=== PATIENT | male | born 1995 | race Two or more races ===

== ENCOUNTER 2024-09-07 12:30 | Inpatient (IN) | payer MEDICAID, SELFPAY ==
[2024-09-07] VITALS (22 sets, daily range): BP systolic 105–195; BP diastolic 79–120; PULSE 111–128; RESP 18–32; TEMP 37.2–38.2; O2SAT 94–98; BMI 32.5
--- NOTE | 2024-09-07 12:50 | XR_ITS ---
Examination: PA lateral chest 2 views TECHNIQUE: Upright PA lateral chest 2 views Exam date and time: September 07, 2024 1306 hours INDICATIONS: Coughing fever shortness of breath beginning 3 days ago. FINDINGS: Prominent pneumonia right upper lobe Ventricular peritoneal shunt tube Reduced inspiratory effort IMPRESSION: Prominent pneumonia right upper lobe
--- NOTE | 2024-09-07 12:50 | PD.EDRME ---
Rapid Medical Screening Exam [facility] Arrival date/time: 09/07/24 12:30 28-year-old male ESRD on dialysis presents emergency department today with complaints of generalized weakness, diarrhea, black stools and fever Chief Complaint: GI Bleed Vital signs: Vital Signs Temperature 99.8 F 09/07/24 12:44 Pulse Rate 126 H 09/07/24 12:44 Respiratory Rate 19 09/07/24 12:44 Blood Pressure 166/87 H 09/07/24 12:44 Pulse Oximetry (%) 95 09/07/24 12:44 Oxygen Delivery Method Room Air 09/07/24 12:44
[2024-09-07 13:16] LABS: Lactate (Lactic Acid) 1.5 mMol/L (0.4-2.0)
[2024-09-07 13:24] LABS: Basophils # (Auto) 0.1 Thou/mm3 (0.0-0.2); Basophils % (Auto) 0 % (0-2.5); Eosinophils % (Auto) 0 % (0-10); Hematocrit 34.2 % (41.0-53.0); Hemoglobin 11.4 g/dL (13.5-16.0); Immature Granulocytes % (Auto) 2 % (0-0); Immature Granulocytes Auto 0.38 Thou/mm3 (0.00-0.00); Lymphocytes # (Auto) 1.2 Thou/mm3 (1.0-4.8); Lymphocytes % (Auto) 5 % (10-50); Mean Corpuscular HGB Conc 33.3 g/dl (31.0-37.0); Mean Corpuscular Hemoglobin 32.4 pg (25.0-35.0); Mean Corpuscular Volume 97 fL (80-100); Monocytes # (Auto) 1.6 Thou/mm3 (0.0-0.8); Monocytes % (Auto) 7 % (0-12); Neutrophils # (Auto) 20.8 Thou/mm3 (1.8-7.7); Neutrophils % (Auto) 87 % (37-80); Nucleated Red Blood Cell % 0 /100 WBC (0); Platelet Count 165 Thou/mm3 (140-440); RDW Standard Deviation 57.3 fL (35.1-43.9); Red Blood Count 3.52 Miln/mm3 (4.50-5.90); White Blood Count 24.1 Thou/mm3 (3.8-10.6)
[2024-09-07 13:39] LABS: INR 1.3 (0.9-1.3); Partial Thromboplastin Time 31.6 Seconds (22.0-36.0); Prothrombin Time 13.7 Seconds (9.0-12.2)
[2024-09-07 14:01] LABS: Alanine Aminotransferase < 7 U/L (10-49); Albumin, Serum 4.3 gm/dL (3.5-5.0); Albumin/Globulin Ratio 1.3 (1.2-2.2); Alkaline Phosphatase 66 U/L (46-116); Anion Gap 17 (7-16); Aspartate Amino Transferase 11 U/L (0-34); BUN/Creatinine Ratio 5 Ratio (12-20); Bilirubin,Total 0.3 mg/dL (0.3-1.2); Blood Urea Nitrogen 75 mg/dL (9-23); Calcium 10.6 mg/dL (8.3-10.6); Calcium (Corrected) 10.6 mg/dL (8.5-10.1); Chloride 93 mMol/L (98-107); Globulin 3.4 gm/dL (2.3-3.5); Glucose 97 mg/dL (74-106); Lipase 37 U/L (12-53); Osmolality,Calculated 286 (275-295); Potassium 5.9 mMol/L (3.4-5.1); Sodium 132 mMol/L (136-145); Total Protein 7.7 gm/dL (5.7-8.2); eGFR 4 See Note
[2024-09-07 14:04] LABS: Creatinine (Component) 14.3 mg/dL (0.6-1.3)
--- NOTE | 2024-09-07 15:50 | PC.NURSE ---
No answer when called for room placement.
[2024-09-07 16:15] LABS: Creatine Kinase 26 U/L (34-171)
--- NOTE | 2024-09-07 16:16 | PD.EDADULT ---
ED General RME/HPI General Chief complaint: GI Bleed Stated complaint: BLACK STOOL, FEVER, BODYACHES, DIARRHEA Time Seen by Provider: 09/07/24 15:36 Arrival date/time: 09/07/24 12:30 CC: Cough generalized weakness with black stools HPI ongoing for the past several days. The patient admits that he drank Pepto-Bismol and since then his stools have been black however the patient states she has had a nonproductive cough for the past 2 to 3 days, and missed dialysis today. The patient has been on dialysis for the past 8 years secondary to spina bifida. Patient is awake alert oriented Dr. Elias is the patient's manager cable in [place]. Patient receives dialysis in [place]. RME / HPI RME / HPI narrative: 09/07/24 12:30 28-year-old male ESRD on dialysis presents emergency department today with complaints of generalized weakness, diarrhea, black stools and fever Related Data Allergies Allergy/AdvReac Type Severity Reaction Status Date / Time No Known Allergies Allergy Verified 09/07/24 12:34 Review of Systems Review of Systems Narrative Review of Systems: GEN: No fever, no chills, no weight loss EYES: No discharge, no visual changes, no pain HEENT: No ear pain, no congestion, no sore throat PULM: No shortness of breath, no cough, no congestion CV: No chest pain, no dyspnea on exertion, no palpitations GI: No nausea, no vomiting, no diarrhea, no pain, no constipation : No frequency, no urgency, no dysuria MUSC/SKEL: No joint pain, no back pain SKIN: No rash PSYCH: No hallucinations, no depression HEME/LYMPH: No easy bleeding or bruising tendencies NEURO: + weakness, no headache Past Medical History Social History SMOKING STATUS: Never smoker ED Exam Narrative Physical exam: [General: Not in any acute distress Head normocephalic HEENT: Within acceptable limits Neck is supple nontender Chest equal chest rise nontender to palpation Respiratory: Coarse crackles right size CV: Rate rhythm is regular, tachycardic, no murmurs rubs or clicks Abdomen is distended secondary to body habitus soft nontender no masses positive bowel sounds all 4 quadrants Back: No CVA tenderness no spinous process tenderness from cervical spine thoracic and lumbar spine Skin: Left upper arm shunt. Skin is intact no petechiae rash induration ulceration or crepitus Extremities: Moving all extremity against resistance cap refill less than 2 seconds neurosensory intact Neuro: Awake alert oriented x3 Glascow coma 15 no focal deficits] Course Quality Measures none Orders Category Date Time Status Admit to Inpatient Status Routine Admission 09/07/24 16:49 Active Bedside COVID-19 Antigen Test NOW Care 09/07/24 12:50 Active Bedside Influenza A&B Antigen Test NOW Care 09/07/24 12:50 Completed EKG (ED ONLY) *Do not use* NOW Care 09/07/24 16:29 Active Insert IV NOW Care 09/07/24 16:19 Active Miscellaneous Nursing Order NOW Care 09/07/24 16:49 Active EKG (ED Only) Stat Exams 09/07/24 16:29 Ordered XR chest 2V Stat Exams 09/07/24 12:50 Completed Blood Culture (Lab) Stat Lab 09/07/24 12:58 Received CBC Stat Lab 09/07/24 12:58 Completed Comprehensive Metabolic Panel Stat Lab 09/07/24 12:58 Completed Creatine Kinase Stat Lab 09/07/24 12:58 Completed Lactate (Lactic Acid) Stat Lab 09/07/24 12:58 Completed Lipase Stat Lab 09/07/24 12:58 Completed PT [Prothrombin Time with INR] Stat Lab 09/07/24 12:58 Completed PTT [Partial Thromboplastin Time] Stat Lab 09/07/24 12:58 Completed Procalcitonin Stat Lab 09/07/24 12:58 Completed ALBUTEROL RT 0.5ml [Proventil Rt 0.5ml] Med 09/07/24 15:38 Discontinued 2.5 mg INH X1 ONE Calcium Gluconate 10% Inj Med 09/07/24 15:38 Discontinued 1 gm IV X1 ONE Dextrose 50% Syr [D50w Syringe Abboject] Med 09/07/24 15:38 Discontinued 50 ml IV X1 ONE Insulin Regular Med 09/07/24 15:38 Discontinued 5 unit IV X1 ONE Sodium Chloride Rt Amrita 0.9% [NS Rt Amrita 0.9%] Med 09/07/24 15:38 Active 3 ml INH PRN PRN cefTRIAXone/D5w 1gm IV premix [Rocephin/D5w 1gm IV Med 09/07/24 15:39 Discontinued premix] 50 ml IV X1 Vital Signs Vital signs: Vital Signs Temperature 99.8 F 09/07/24 12:44 Pulse Rate 126 H 09/07/24 12:44 Respiratory Rate 19 09/07/24 12:44 Blood Pressure 166/87 H 09/07/24 12:44 Pulse Oximetry (%) 95 09/07/24 12:44 Oxygen Delivery Method Room Air 09/07/24 12:44 [facility] Patient data External records reviewed:: [facility] previous records Clinical information provided by:: patient Social determinants that could affect healthcare access:: none Patient has the following chronic illnesses:: ESRD dialysis spina bifida yeah How is presenting disease/condition affected by chronic disease/condition?: exacerbated by Evaluation data The following diagnostics were reviewed and interpreted by me:: lab results and radiology exam(s) Lab and/or radiology exams considered but not ordered:: CBC shows of 24,100 white count H&H of 11.4 and 34.2 respectively platelets at 165 CMP shows sodium 132 potassium of 5.9 chloride 93 CO2 of 22 BUN of 75 creatinine of 14.3 with a glucose of 97 Coags PT at 13.7 gap of 17 CK 26 Chest x-ray was a right prominent pneumonia EKG performed at 1650 shows a ventricular rate of 121 SC interval 135 QRS of 91 QTc of 345 sinus tachycardia. Interpretation Summary: Hyperkalemia secondary to missed dialysis ESRD with a prominent pneumonia. This patient needs to be admitted and managed. Patient has been given medications to bring his potassium down. Patient's case discussed with Dr. Yadav resident for Dr. Kasper attending who agrees to accept the patient for admission Medications Medications considered but not ordered:: None Medication administrations:: Medication Administration History Sodium Chloride (Sodium Chloride Rt Amrita 0.9% 3 Ml Nebu) 3 ml INH PRN PRN PRN Reason: SOLN Stop: 10/07/24 15:37 Discontinued Medications Albuterol (Albuterol Rt 2.5 Mg/0.5 Ml Nebu) 2.5 mg INH X1 ONE Stop: 09/07/24 15:39 Calcium Gluconate (Calcium Gluconate 10% Inj 1 Gm/10 Ml Vial) 1 gm IV X1 ONE Stop: 09/07/24 15:39 Last Admin: 09/07/24 16:32 Dose: 1 gm Documented By: SILVERIO Dextrose (Dextrose 50%-Water Inj 50 Ml Syringe) 50 ml IV X1 ONE Stop: 09/07/24 15:39 Last Admin: 09/07/24 16:36 Dose: 50 ml Documented By: SILVERIO Ceftriaxone Sodium/Dextrose (Rocephin/D5w 1gm Iv Premix) 50 mls @ 100 mls/hr IV X1 ONE Stop: 09/07/24 16:08 Last Admin: 09/07/24 16:44 Dose: 100 mls/hr Documented By: SILVERIO Insulin Human Regular (Insulin Hum Regular 1 Unit/0.01 Ml (Per Unit)) 5 unit IV X1 ONE Stop: 09/07/24 15:39 Last Admin: 09/07/24 16:34 Dose: 5 unit Documented By: SILVERIO Co-signed By: MARJORIE None Consultations Consultation(s) initiated? (list below): No Diagnosis Differential Diagnosis ED Complaint MDM: ESRD hyper calcium Nancy pneumonia sepsis Most likely diagnosis given after review of the tests above:: Hyperkalemia pneumonia ESRD Admission Indicated Admission indicated?: indicated Explain why admission is indicated or not indicated:: Requires further medical management Admission Request Was there a request for admission?: No Disposition Plan Disposition Plan: Admit Medical Decision Making Differential Diagnosis Differential Diagnosis: ESRD hyper calcium Nancy pneumonia sepsis Lab Data 09/07/24 12:58 09/07/24 12:58 Labs: Lab Results 09/07/24 Range/Units 12:58 WBC 24.1 H (3.8-10.6) Thou/mm3 RBC 3.52 L (4.50-5.90) Miln/mm3 Hgb 11.4 L (13.5-16.0) g/dL Hct 34.2 L (41.0-53.0) % MCV 97 (80-100) fL MCH 32.4 (25.0-35.0) pg MCHC 33.3 (31.0-37.0) g/dl RDW Std Deviation 57.3 H (35.1-43.9) fL Plt Count 165 (140-440) Thou/mm3 Neut % (Auto) 87 H (37-80) % Lymph % (Auto) 5 L (10-50) % Bath % (Auto) 7 (0-12) % Eos % (Auto) 0 (0-10) % Baso % (Auto) 0 (0-2.5) % Neut # (Auto) 20.8 H (1.8-7.7) Thou/mm3 Lymph # (Auto) 1.2 (1.0-4.8) Thou/mm3 Bath # (Auto) 1.6 H (0.0-0.8) Thou/mm3 Eos # (Auto) 0.0 (0.0-0.5) Thou/mm3 Baso # (Auto) 0.1 (0.0-0.2) Thou/mm3 Immature Gran # (Auto) 0.38 H (0.00-0.00) Thou/mm3 Absolute Nucleated RBC 0.00 (0.00-0.00) Thou/mm3 Immature Gran % 2 H (0-0) % Nucleated RBC % 0 (0) /100 WBC PT 13.7 H (9.0-12.2) Seconds INR 1.3 (0.9-1.3) APTT 31.6 (22.0-36.0) Seconds Sodium 132 L (136-145) mMol/L Potassium 5.9 H (3.4-5.1) mMol/L Chloride 93 L (98-107) mMol/L Carbon Dioxide 22.0 (20.0-31.0) mMol/L Anion Gap 17 H (7-16) BUN 75 H (9-23) mg/dL Creatinine 14.3 H* (0.6-1.3) mg/dL Estim Creat Clear Calc 8.0 L (>60) mL/min eGFR 4 L* (60 - ) See Note BUN/Creatinine Ratio 5 L (12-20) Ratio Glucose 97 (74-106) mg/dL Calculated Osmolality 286 (275-295) Lactic Acid 1.5 (0.4-2.0) mMol/L Calcium 10.6 (8.3-10.6) mg/dL Corrected Calcium 10.6 H (8.5-10.1) mg/dL Total Bilirubin 0.3 (0.3-1.2) mg/dL AST 11 (0-34) U/L ALT < 7 L (10-49) U/L Alkaline Phosphatase 66 (46-116) U/L Total Creatine Kinase 26 L (34-171) U/L Total Protein 7.7 (5.7-8.2) gm/dL Albumin 4.3 (3.5-5.0) gm/dL Globulin 3.4 (2.3-3.5) gm/dL Albumin/Globulin Ratio 1.3 (1.2-2.2) Lipase 37 (12-53) U/L Procalcitonin 55.20 H (0.0-0.49) ng/ml Discharge Plan Plan Patient Disposition: Other Care w/in Hosp ([facility]) Patient condition on transfer: Stable Problem List Clinical Impression: Pneumonia, Hyperkalemia, End-stage renal disease (ESRD) Patient/Caregiver Discharge Instructions Print Language: Persian Stand Alone Forms: María Award Info., Patient Portal Info Letter PA/FORMING PROCESS LINE WORKER Supervising Physician PA/FORMING PROCESS LINE WORKER Supervising Physician: Travis Hampton ENP
[2024-09-07] MEDS: CALCIUM GLUCONATE 10% INJ 1 GM/10 ML VIAL IV (16:32)
[2024-09-07] MEDS: INSULIN HUM REGULAR 1 UNIT/0.01 ML (PER UNIT) 5 UNIT IV (16:34)
[2024-09-07] MEDS: DEXTROSE 50%-WATER INJ 50 ML SYRINGE IV (16:36)
[2024-09-07] MEDS: cefTRIAXone/D5w 1gm IV premix 50 ML IV (16:44)
[2024-09-07] MEDS: SODIUM CHLORIDE RT SOL 0.9% 3 ML NEBU INH (16:59)
[2024-09-07] MEDS: ALBUTEROL RT 2.5 MG/0.5 ML NEBU INH (16:59)
--- NOTE | 2024-09-07 17:04 | PD.RESHP ---
Documentation for date of: 09/07/24 [facility] History of Present Illness Chief complaint: Fever, chills, body aches History of present illness: 28-year-old male with past medical history of hypertension, ESRD [M,W,F] (anuric) dry weight 98 kg presented to the ED due to fevers, chills, body aches. Patient reports symptom onset started around Saturday morning 09/06/2024 patient started developing fever, body aches, chills and a cough that was nonproductive. Patient also reports that around this time he was also having black stools. Patient denies taking any type of iron supplementation, states he only took Pepto-Bismol on Saturday. Patient also endorses shortness of breath on exertion, stated that going to the bathroom constant shortness of breath. Patient also states he missed his hemodialysis session today due to severity of his symptoms. At this time patient denies headache, blurry vision, chest pain, nausea, vomiting, abdominal pain, lower extremity swelling. ED course: Vitals on admission include blood pressure 166/87, heart rate 126 bpm, rest of vitals within normal limits. Labs significant for WBCs 24.1, hemoglobin 11.4, sodium 132, potassium 5.9, BUN 75, creatinine 14.3, corrected calcium 10.6, creatinine kinase 26, procalcitonin 55.2. Chest x-ray showed prominent pneumonia in the right upper lobe. In the ED patient received calcium gluconate, albuterol, insulin, dextrose PMHx: ESRD, hypertension SxHx: Right kidney transplant 2011, AV fistula X2 (last 1 in 2017) Social Hx: Denies alcohol use, denies tobacco use, denies illicit substances including THC FHx: Unknown Medications: Sevelamer 800 mg 3 times daily, lisinopril 40 mg daily, amlodipine 5 mg daily, carvedilol 25 mg twice daily Allergies: No known drug allergies Review of Systems Review of Systems Narrative Review of Systems: Narrative ROS GENERAL: Denies fevers/chills or diaphoresis. HEENT: Denies headache or visual/hearing changes. Denies nasal discharge. NEURO: Denies unusual weakness or difficulty speaking. CARDIO: Denies chest pain or palpitations. PULM: Denies SOB, coughing, or wheezing. GI: Denies abdominal pain, N/V/C/D/reflux/gas, bright red blood per rectum or melena. Reports having BMs. MSK/EXT/SKIN: Denies joint/skeletal/muscle pain, issues/changes in upper or lower extremities, itchiness, or superficial pain. PSYCH: Cooperative, pleasant mood & affect. The rest of the review of systems is otherwise negative. Exam Vital Signs Temp Pulse Resp BP Pulse Ox O2 Del Method 98.9 F 120 H 32 H 170/95 H 97 Room Air 09/07/24 16:09 09/07/24 17:01 09/07/24 17:01 09/07/24 16:09 09/07/24 17:01 09/07/24 16:09 Narrative Exam Physical Exam GENERAL: NAD, AAOx3 HEENT: Dry mucosa. Eyes open, symmetrical, & clear CARDIO: Heart RRR, systolic ejection murmur heard across all chest areas radiating to bilateral carotids PULM: Cough, shortness of breath, decreased air entry on the right side GI: Abdomen soft, nondistended, no pain on palpation. BSx4 SKIN/MSK/EXT: No wounds/rashes/edema/amputations, no pain on palpation. Left upper extremity scar, left upper extremity AV fistula, pedal pulses present B/L NEURO: AAOx3, no focal neuro deficits, able to move all 4 extremities Results: Labs 09/09/24 05:00 09/09/24 05:00 Labs: Short CBC 09/07/24 Range/Units 12:58 WBC 24.1 H (3.8-10.6) Thou/mm3 Hgb 11.4 L (13.5-16.0) g/dL Hct 34.2 L (41.0-53.0) % Plt Count 165 (140-440) Thou/mm3 BMP 09/07/24 12:58 Sodium 132 L Potassium 5.9 H Chloride 93 L Carbon Dioxide 22.0 BUN 75 H Creatinine 14.3 H* Glucose 97 Calcium 10.6 Cardiac Enzymes 09/07/24 Range/Units 12:58 Total Creatine Kinase 26 L (34-171) U/L Liver Function 09/07/24 Range/Units 12:58 Total Bilirubin 0.3 (0.3-1.2) mg/dL AST 11 (0-34) U/L ALT < 7 L (10-49) U/L Alkaline Phosphatase 66 (46-116) U/L Albumin 4.3 (3.5-5.0) gm/dL Quality Measures Quality Measures none Medications Home Medications and Allergies Home Medications ?Medication ?Instructions ?Recorded ?Confirmed ?Type amlodipine 10 mg tablet 10 mg PO HS 09/07/24 09/07/24 History carvedilol 25 mg tablet 25 mg PO BID 09/07/24 09/07/24 History lisinopril 40 mg tablet 40 mg PO QDAY 09/07/24 09/07/24 History sevelamer HCl 800 mg tablet 800 mg PO TID 09/07/24 09/07/24 History sucroferric oxyhydroxide 500 mg 500 mg PO TID 09/07/24 09/07/24 History chewable tablet (Velphoro) Allergies Allergy/AdvReac Type Severity Reaction Status Date / Time No Known Allergies Allergy Verified 09/07/24 12:34 Visit Medications Acetaminophen (Acetaminophen 325 Mg Tablet) 650 mg PO Q6H PRN PRN Reason: Fever >100.5 Stop: 10/07/24 16:49 Acetaminophen (Acetaminophen 325 Mg Tablet) 650 mg PO Q6H PRN PRN Reason: PAIN SCALE 1-3 (mild Stop: 10/07/24 16:49 Carvedilol (Carvedilol 3.125 Mg Tablet) 6.25 mg PO BIDWM [facility] Stop: 10/07/24 17:29 Docusate Sodium (Docusate Sod 100 Mg Capsule) 100 mg PO QDAY [facility]; Protocol Stop: 10/08/24 08:59 Doxycycline Hyclate (Doxycycline 100 Mg Tablet) 100 mg PO BID [facility] Stop: 09/14/24 20:59 Heparin Sodium (Porcine) (Heparin Sod Inj 5000 Unit/Ml Vial) 5,000 unit SC Q8HR [facility] Stop: 09/21/24 16:54 Ceftriaxone Sodium/Dextrose (Rocephin/D5w 1gm Iv Premix) 50 mls @ 100 mls/hr IV QDAY [facility] Stop: 09/14/24 16:50 Lisinopril (Lisinopril 20 Mg Tablet) 40 mg PO QDAY [facility] Stop: 10/07/24 16:59 Ondansetron HCl (Ondansetron Inj 2 Mg/Ml Inj 2 Ml) 4 mg IV Q6H PRN; Protocol PRN Reason: NAUSEA OR VOMITING Stop: 10/07/24 16:49 Pantoprazole Sodium (Pantoprazole Inj 40 Mg Vial) 40 mg IV BID [facility] Stop: 10/07/24 20:59 Sevelamer Carbonate (Sevelamer Carbonate 800 Mg Tablet) 800 mg PO TIDWM [facility] Stop: 10/07/24 17:29 Sodium Chloride (Sodium Chloride Rt Amrita 0.9% 3 Ml Nebu) 3 ml INH PRN PRN PRN Reason: SOLN Stop: 10/07/24 15:37 Last Admin: 09/07/24 16:59 Dose: 3 ml Discontinued Medications Albuterol (Albuterol Rt 2.5 Mg/0.5 Ml Nebu) 2.5 mg INH X1 ONE Stop: 09/07/24 15:39 Last Admin: 09/07/24 16:59 Dose: 2.5 mg Calcium Gluconate (Calcium Gluconate 10% Inj 1 Gm/10 Ml Vial) 1 gm IV X1 ONE Stop: 09/07/24 15:39 Last Admin: 09/07/24 16:32 Dose: 1 gm Dextrose (Dextrose 50%-Water Inj 50 Ml Syringe) 50 ml IV X1 ONE Stop: 09/07/24 15:39 Last Admin: 09/07/24 16:36 Dose: 50 ml Ceftriaxone Sodium/Dextrose (Rocephin/D5w 1gm Iv Premix) 50 mls @ 100 mls/hr IV X1 ONE Stop: 09/07/24 16:08 Last Admin: 09/07/24 16:44 Dose: 100 mls/hr Insulin Human Regular (Insulin Hum Regular 1 Unit/0.01 Ml (Per Unit)) 5 unit IV X1 ONE Stop: 09/07/24 15:39 Last Admin: 09/07/24 16:34 Dose: 5 unit Sodium Chloride (Sodium Chloride Rt 10% 15 Ml Nebu) 5 ml INH X1 ONE Stop: 09/07/24 16:57 Assessment & Plan Plan 28-year-old male with past medical history of hypertension, ESRD [M, W, F] seen by guyline operator, Dr. Elias in [place] presented to the ED due to fevers, chills, body aches, nonproductive cough and black stools for 2 days. Admitted for sepsis secondary to pneumonia. #Sepsis likely secondary to #Community-acquired pneumonia Patient's chief complaint is fever, chills, body aches, nonproductive cough and shortness of breath on exertion On admission patient was tachycardic, with leukocytosis, tachypnea Currently with tachycardia, tachypnea, febrile Chest x-ray showed prominent right upper lobe pneumonia Procalcitonin 55.2, lactic acid normal -On ceftriaxone and doxycycline [09/07/2024-] -Blood cultures ordered -Sputum culture ordered -Influenza A/B ordered -RSV ordered #Concern for GI bleed likely upper Patient reports having black stools since Saturday morning -C. difficile ordered -FOBT ordered -GI Dr. Pina consulted, appreciate recommendations -Pantoprazole 40 mg IV twice daily #ESRD [M, W, F] #History of renal transplant 2011 Patient follows guyline operator, Dr. Elias in [place] -Urgent dialysis today -Continue hemodialysis as scheduled -Nephrology, Dr. Dsouza consulted, appreciate recommendations -Avoid nephrotoxins -Renally dose medications #Hypertensive urgency #History of hypertension on admission systolic blood pressure more than 165 -Started carvedilol 6.25 mg twice daily -Started lisinopril 40 mg daily #Hyperkalemia On admission patient was found to have potassium of 5.9 EKG was ordered however has not been updated to the EMR In the ED patient received calcium gluconate, albuterol, insulin, dextrose Patient will also have urgent dialysis today -Follow-up morning CMP #Heart murmur On examination patient was noted to have heart murmur across all chest areas radiating to the bilateral carotids Patient denies any cardiac history besides hypertension -Monitor for now Case discussed with my senior Dr. Resendiz PGY-[address] Majo Montanez MD PGY-1 Disposition: Med telemetry Fluids: None Feeding: Renal diet Thrombo prophylaxis: Heparin Gastric Ulcer prophylaxis: Pantoprazole CODE STATUS: Full code Senior resident attestation: Patient evaluated and examined at the bedside, plan of care discussed with rest of the team including my attending physician, except as noted. Astrid PGY2 Attending Provider Attestation/Addendum Noemy Nye, , attest that I was physically present for the gallegos portions of the service and evaluated the patient with the resident and I reviewed and discussed the case with the resident and agree with the resident's findings and plans of care as documented above Patient is a 28-year-old male with past medical history of hypertension, end-stage renal disease, spina bifida who was brought to the ED due to fevers, chills and bodyaches that began about 2 days ago. Patient endorses having multiple episodes of diarrhea as well. He endorses cough and shortness of breath. He denies any chest pain, nausea, vomiting otherwise. Patient denies any recent sick contacts at home. Chest x-ray was done in the ED showing right middle lobe pneumonia. Patient is tachycardic with heart rate in the 120s and leukocytosis of 24.1. Due to feeling ill, patient was unable to go to his dialysis session today and was brought to the ED. Patient has been febrile with temperature of 100.7. Will admit patient to med/telemetry for further workup and medical management of sepsis secondary to pneumonia. Will start doxycycline to cover for MRSA and atypical bacteria as well as Rocephin for gram-negative rods. Will order stool studies to rule out C. difficile. Will follow-up with blood cultures.
[2024-09-07] MEDS: carVEDILOL 3.125 MG TABLET 6.25 MG PO (17:18)
[2024-09-07] MEDS: HEPARIN SOD INJ 5000 UNIT/ML VIAL SC ×2 (17:20→22:32)
--- NOTE | 2024-09-07 17:30 | PC.NURSE ---
Patient taken to dialysis at 1730
[2024-09-07 18:25] LABS: Parathyroid Hormone Intact 319.1 pg/ml (18.5-88.0)
[2024-09-07] MEDS: ACETAMINOPHEN 325 MG TABLET 650 MG PO (20:07)
[2024-09-07] MEDS: Lisinopril 20 MG TABLET 40 MG PO (20:07)
--- NOTE | 2024-09-07 22:16 | PD.IMCONS ---
HPI Data of Consult Requesting Physician: Noemy Kasper DO Primary Care Provider: Robert Montanez MD Consult Narrative Reason for consult: Melena History of present illness: 28 years old male who presented to hospital with fever shortness of breath found to have a right lower lobe pneumonia and also has history of melanotic stools He has end-stage renal disease on hemodialysis MWF cc:: cc: Noemy Kasper DO Past Medical History Surgical History OTHER SURGICAL HX: End-stage renal disease on hemodialysis MWF essential hypertension Meds Home Medications and Allergies Home Medications ?Medication ?Instructions ?Recorded ?Confirmed ?Type amlodipine 10 mg tablet 10 mg PO HS 09/07/24 09/07/24 History carvedilol 25 mg tablet 25 mg PO BID 09/07/24 09/07/24 History lisinopril 40 mg tablet 40 mg PO QDAY 09/07/24 09/07/24 History sevelamer HCl 800 mg tablet 800 mg PO TID 09/07/24 09/07/24 History sucroferric oxyhydroxide 500 mg 500 mg PO TID 09/07/24 09/07/24 History chewable tablet (Velphoro) Allergies Allergy/AdvReac Type Severity Reaction Status Date / Time No Known Allergies Allergy Verified 09/07/24 12:34 Exam Vital Signs Temp Pulse Resp BP Pulse Ox O2 Del Method O2 Flow Rate 100.5 F H 122 H 18 143/79 H 98 Room Air 2 09/07/24 20:46 09/07/24 20:52 09/07/24 20:46 09/07/24 20:52 09/07/24 20:46 09/07/24 16:09 09/07/24 20:46 Constitutional Comments: Chronically ill-appearing Routine Respiratory Exam Comments: Decreased breath sounds at the bases Routine Abdominal Exam Comments: Soft nontender Results Labs 09/07/24 12:58 09/07/24 12:58 Labs: Short CBC 09/07/24 Range/Units 12:58 WBC 24.1 H (3.8-10.6) Thou/mm3 Hgb 11.4 L (13.5-16.0) g/dL Hct 34.2 L (41.0-53.0) % Plt Count 165 (140-440) Thou/mm3 BMP 09/07/24 12:58 Sodium 132 L Potassium 5.9 H Chloride 93 L Carbon Dioxide 22.0 BUN 75 H Creatinine 14.3 H* Glucose 97 Calcium 10.6 Cardiac Enzymes 09/07/24 Range/Units 12:58 Total Creatine Kinase 26 L (34-171) U/L Liver Function 09/07/24 Range/Units 12:58 Total Bilirubin 0.3 (0.3-1.2) mg/dL AST 11 (0-34) U/L ALT < 7 L (10-49) U/L Alkaline Phosphatase 66 (46-116) U/L Albumin 4.3 (3.5-5.0) gm/dL Assessment and Plan Additional Assessment & Plan Additional Plan: # Melena most likely upper GI source of bleeding plan Clear liquid diet till 10 AM tomorrow then n.p.o. except p.o. meds consent obtained for fiberoptic esophagogastroduodenoscopy with possible therapeutic intervention under intravenous moderate sedation Other medical problems include End-stage renal disease on hemodialysis Essential hypertension Thank you very much for the opportunity to participate in care of this patient
[2024-09-07] MEDS: PANTOPRAZOLE INJ 40 MG VIAL IV (22:31)
[2024-09-07] MEDS: DOXYCYCLINE 100 MG TABLET PO (22:32)
[2024-09-08] VITALS (17 sets, daily range): BP systolic 129–154; BP diastolic 73–110; PULSE 69–115; RESP 12–33; TEMP 36.1–37; O2SAT 93–100
[2024-09-08 00:23] LABS: OBS Card Lot # 22002; OBS Developer Lot # 23003; OBS Performed By lopea5; OBS QC OK? Yes; Occult Blood, Stool Negative (Negative)
[2024-09-08 00:56] LABS: Respiratory Syncytial Virus Ag Negative (Negative)
[2024-09-08] MEDS: HEPARIN SOD INJ 5000 UNIT/ML VIAL SC ×2 (05:14→14:29)
[2024-09-08 06:27] LABS: Basophils # (Auto) 0.1 Thou/mm3 (0.0-0.2); Basophils % (Auto) 0 % (0-2.5); Eosinophils # (Auto) 0.1 Thou/mm3 (0.0-0.5); Eosinophils % (Auto) 0 % (0-10); Hematocrit 32.1 % (41.0-53.0); Hemoglobin 10.7 g/dL (13.5-16.0); Immature Granulocytes % (Auto) 1 % (0-0); Immature Granulocytes Auto 0.09 Thou/mm3 (0.00-0.00); Lymphocytes # (Auto) 1.1 Thou/mm3 (1.0-4.8); Lymphocytes % (Auto) 7 % (10-50); Mean Corpuscular HGB Conc 33.3 g/dl (31.0-37.0); Mean Corpuscular Hemoglobin 32.9 pg (25.0-35.0); Mean Corpuscular Volume 99 fL (80-100); Monocytes # (Auto) 1.8 Thou/mm3 (0.0-0.8); Monocytes % (Auto) 12 % (0-12); Neutrophils # (Auto) 12.2 Thou/mm3 (1.8-7.7); Neutrophils % (Auto) 80 % (37-80); Nucleated Red Blood Cell % 0 /100 WBC (0); Platelet Count 135 Thou/mm3 (140-440); RDW Standard Deviation 58.2 fL (35.1-43.9); Red Blood Count 3.25 Miln/mm3 (4.50-5.90); White Blood Count 15.3 Thou/mm3 (3.8-10.6)
[2024-09-08 07:36] LABS: Alanine Aminotransferase < 7 U/L (10-49); Albumin, Serum 4.2 gm/dL (3.5-5.0); Albumin/Globulin Ratio 1.3 (1.2-2.2); Alkaline Phosphatase 66 U/L (46-116); Anion Gap 13 (7-16); Aspartate Amino Transferase < 10 U/L (0-34); BUN/Creatinine Ratio 4 Ratio (12-20); Bilirubin,Total 0.4 mg/dL (0.3-1.2); Blood Urea Nitrogen 38 mg/dL (9-23); Calcium 10.2 mg/dL (8.3-10.6); Calcium (Corrected) 10.2 mg/dL (8.5-10.1); Carbon Dioxide 30.3 mMol/L (20.0-31.0); Cardiac Risk Estimate 3.4 RATIO (4.0-6.7); Chloride 94 mMol/L (98-107); Cholesterol 104 mg/dL (132-200); Creatinine (Component) 9.2 mg/dL (0.6-1.3); Estimated Creatinine Clearance 12.5 mL/min (>60); Globulin 3.3 gm/dL (2.3-3.5); Glucose 95 mg/dL (74-106); HDL Cholesterol 31 mg/dL (40-60); LDL Cholesterol,Calculated 46 mg/dL (0-130); Magnesium 2.4 mg/dL (1.6-2.6); Osmolality,Calculated 282 (275-295); Phosphorous 7.6 mg/dL (2.4-5.1); Potassium 4.9 mMol/L (3.4-5.1); Sodium 137 mMol/L (136-145); Total Protein 7.5 gm/dL (5.7-8.2); Triglycerides 133 mg/dL (30-150); eGFR 7 See Note
[2024-09-08] MEDS: cefTRIAXone/D5w 1gm IV premix 50 ML IV (08:32)
[2024-09-08] MEDS: Lisinopril 20 MG TABLET 40 MG PO (08:32)
[2024-09-08] MEDS: DOXYCYCLINE 100 MG TABLET PO ×2 (08:32→22:29)
[2024-09-08] MEDS: carVEDILOL 3.125 MG TABLET 6.25 MG PO (08:32)
[2024-09-08] MEDS: DOCUSATE SOD 100 MG CAPSULE PO (08:33)
[2024-09-08] MEDS: SEVELAMER CARBONATE 800 MG TABLET PO (08:33)
[2024-09-08] MEDS: PANTOPRAZOLE INJ 40 MG VIAL IV (08:34)
--- NOTE | 2024-09-08 08:53 | PC.NURSE ---
[facility] 0[facility] 0700.
--- NOTE | 2024-09-08 09:52 | PD.RESCONSUL ---
HPI Data of Consult Consult date: 09/07/24 Requesting Physician: Noemy Kasper DO Admitting Provider: Noemy Kasper DO Attending Provider: Noemy Kasper DO Primary Care Provider: Robert Montanez MD Consult Narrative Reason for consult: ESRD History of present illness: Tin Pepe is a 28-year-old male with past medical history of hypertension, ESRD (HD on M/W/F, anuric) s/p renal transplant in 2011 with dry weight 98 kg who presented to the ED for fevers, chills, body aches, and nonproductive cough starting AM of 09/06. Also reports that around this time he was having black stools. Denies taking any type of iron supplementation, states he only took Pepto-Bismol on Saturday. Also endorses dyspnea on exertion, such as when he ambulates to and from the restroom. Of note, he missed his hemodialysis session on Saturday due to severity of his symptoms. Otherwise, denies headache, blurry vision, chest pain, nausea, vomiting, abdominal pain, lower extremity swelling. In ED, vitals significant for BP 166/87, HR 126, otherwise vital stable. Labs significant for WBC 24.1, hemoglobin 11.4, sodium 132, potassium 5.9, BUN 75, creatinine 14.3, calcium 10.6, Pro-Vicente 55.2. CXR showed pulmonary pneumonia in right upper lobe. Received calcium gluconate, insulin, albuterol, and dextrose. Admitted for management of sepsis secondary to pneumonia. Nephrology consulted for ESRD requiring dialysis. Patient follows Dr. Elias in [place]. 09/08: Seen and examined at bedside with family present. No acute overnight events and patient does not have any current complaints. Continues to be on 3 L nasal cannula but denies worsening shortness of breath. Underwent dialysis yesterday inpatient after missing outpatient session and tolerated well. Will follow outpatient regimen of //. WBC downtrending from 24 to 15.3, hemoglobin stable at 10.7. Sodium improved from 132 to 137, potassium improved from 5.9 to 4.9, BUN from 75 to 38 and creatinine from 14.3 to 9.2. cc:: cc: Noemy Kasper DO Exam Vital Signs Temp Pulse Resp BP Pulse Ox O2 Del Method O2 Flow Rate 98.6 F 96 17 143/107 H 100 Nasal Cannula 3 09/08/24 08:00 09/08/24 08:32 09/08/24 08:00 09/08/24 08:32 09/08/24 08:00 09/08/24 08:00 09/08/24 08:00 Narrative Exam General: AOx3, no acute distress, able to speak full sentences on 3 L NC HEENT: NC/AT, mucous membranes moist, bilateral sclera anicteric Cardiovascular: regular rate and rhythm, S1/S2 present, no murmurs appreciated Pulmonary: mild crackles at bases Abdominal: soft, non-tender, non-distended, no rebound/guarding, normal bowel sounds present Musculoskeletal: fistula on right upper extremity, normal ROM, no peripheral edema Skin: warm and dry, intact, no rashes Neuro: CN II-XII intact, no focal deficits Results Labs 09/08/24 05:03 09/08/24 05:03 Labs: Short CBC 09/07/24 09/08/24 Range/Units 12:58 05:03 WBC 24.1 H 15.3 H D (3.8-10.6) Thou/mm3 Hgb 11.4 L 10.7 L (13.5-16.0) g/dL Hct 34.2 L 32.1 L (41.0-53.0) % Plt Count 165 135 L D (140-440) Thou/mm3 BMP 09/07/24 09/08/24 12:58 05:03 Sodium 132 L 137 Potassium 5.9 H 4.9 D Chloride 93 L 94 L Carbon Dioxide 22.0 30.3 BUN 75 H 38 H Creatinine 14.3 H* 9.2 H* D Glucose 97 95 Calcium 10.6 10.2 Cardiac Enzymes 09/07/24 Range/Units 12:58 Total Creatine Kinase 26 L (34-171) U/L Liver Function 09/07/24 09/08/24 Range/Units 12:58 05:03 Total Bilirubin 0.3 0.4 (0.3-1.2) mg/dL AST 11 < 10 (0-34) U/L ALT < 7 L < 7 L (10-49) U/L Alkaline Phosphatase 66 66 (46-116) U/L Albumin 4.3 4.2 (3.5-5.0) gm/dL Quality Measures Quality Measures none Medications Home Medications and Allergies Home Medications ?Medication ?Instructions ?Recorded ?Confirmed ?Type amlodipine 10 mg tablet 10 mg PO HS 09/07/24 09/07/24 History carvedilol 25 mg tablet 25 mg PO BID 09/07/24 09/07/24 History lisinopril 40 mg tablet 40 mg PO QDAY 09/07/24 09/07/24 History sevelamer HCl 800 mg tablet 800 mg PO TID 09/07/24 09/07/24 History sucroferric oxyhydroxide 500 mg 500 mg PO TID 09/07/24 09/07/24 History chewable tablet (Velphoro) Allergies Allergy/AdvReac Type Severity Reaction Status Date / Time No Known Allergies Allergy Verified 09/07/24 12:34 Visit Medications Acetaminophen (Acetaminophen 325 Mg Tablet) 650 mg PO Q6H PRN PRN Reason: Fever >100.5 Stop: 10/07/24 16:49 Acetaminophen (Acetaminophen 325 Mg Tablet) 650 mg PO Q6H PRN PRN Reason: PAIN SCALE 1-3 (mild Stop: 10/07/24 16:49 Last Admin: 09/07/24 20:07 Dose: 650 mg Carvedilol (Carvedilol 3.125 Mg Tablet) 6.25 mg PO BIDWM [facility] Stop: 10/07/24 17:29 Last Admin: 09/08/24 08:32 Dose: 6.25 mg Docusate Sodium (Docusate Sod 100 Mg Capsule) 100 mg PO QDAY [facility]; Protocol Stop: 10/08/24 08:59 Last Admin: 09/08/24 08:33 Dose: 100 mg Doxycycline Hyclate (Doxycycline 100 Mg Tablet) 100 mg PO BID [facility] Stop: 09/14/24 20:59 Last Admin: 09/08/24 08:32 Dose: 100 mg Heparin Sodium (Porcine) (Heparin Sod Inj 5000 Unit/Ml Vial) 5,000 unit SC Q8HR [facility] Stop: 09/21/24 16:54 Last Admin: 09/08/24 07:35 Dose: Not Given Ceftriaxone Sodium/Dextrose (Rocephin/D5w 1gm Iv Premix) 50 mls @ 100 mls/hr IV QDAY [facility] Stop: 09/14/24 16:50 Last Admin: 09/08/24 08:32 Dose: 100 mls/hr Albumin Human (Albuminar-25 Ivpb) 25 gm in 100 mls @ 100 mls/min IV PRN PRN PRN Reason: DIALYSIS Labetalol HCl (Labetalol Inj 5 Mg/Ml Vial 20 Ml) 10 mg IVP Q6H PRN PRN Reason: SBP>170 Stop: 10/07/24 17:59 Lisinopril (Lisinopril 20 Mg Tablet) 40 mg PO QDAY [facility] Stop: 10/07/24 16:59 Last Admin: 09/08/24 08:32 Dose: 40 mg Ondansetron HCl (Ondansetron Inj 2 Mg/Ml Inj 2 Ml) 4 mg IV Q6H PRN; Protocol PRN Reason: NAUSEA OR VOMITING Stop: 10/07/24 16:49 Pantoprazole Sodium (Pantoprazole Inj 40 Mg Vial) 40 mg IV QDAY [facility] Stop: 10/08/24 08:59 Last Admin: 09/08/24 08:34 Dose: 40 mg Sevelamer Carbonate (Sevelamer Carbonate 800 Mg Tablet) 800 mg PO TIDWM [facility] Stop: 10/07/24 17:29 Last Admin: 09/08/24 08:33 Dose: 800 mg Sodium Chloride (Sodium Chloride Rt Amrita 0.9% 3 Ml Nebu) 3 ml INH PRN PRN PRN Reason: SOLN Stop: 10/07/24 15:37 Last Admin: 09/07/24 16:59 Dose: 3 ml Discontinued Medications Albuterol (Albuterol Rt 2.5 Mg/0.5 Ml Nebu) 2.5 mg INH X1 ONE Stop: 09/07/24 15:39 Last Admin: 09/07/24 16:59 Dose: 2.5 mg Calcium Gluconate (Calcium Gluconate 10% Inj 1 Gm/10 Ml Vial) 1 gm IV X1 ONE Stop: 09/07/24 15:39 Last Admin: 09/07/24 16:32 Dose: 1 gm Dextrose (Dextrose 50%-Water Inj 50 Ml Syringe) 50 ml IV X1 ONE Stop: 09/07/24 15:39 Last Admin: 09/07/24 16:36 Dose: 50 ml Ceftriaxone Sodium/Dextrose (Rocephin/D5w 1gm Iv Premix) 50 mls @ 100 mls/hr IV X1 ONE Stop: 09/07/24 16:08 Last Infusion: 09/07/24 17:25 Dose: Infused Insulin Human Regular (Insulin Hum Regular 1 Unit/0.01 Ml (Per Unit)) 5 unit IV X1 ONE Stop: 09/07/24 15:39 Last Admin: 09/07/24 16:34 Dose: 5 unit Pantoprazole Sodium (Pantoprazole Inj 40 Mg Vial) 40 mg IV BID [facility]AIDA Stop: 10/07/24 20:59 Last Admin: 09/07/24 22:31 Dose: 40 mg Sodium Chloride (Sodium Chloride Rt 10% 15 Ml Nebu) 5 ml INH X1 ONE Stop: 09/07/24 16:57 Assessment & Plan Plan Tin Pepe is a 28-year-old male with past medical history of hypertension, ESRD (HD on M/W/, anuric) s/p renal transplant in 2011 with dry weight 98 kg who was admitted for management of sepsis seconadry to pneumonia. Nephrology consulted for ESRD requiring dialysis (HD on M/W/) and follows Dr. Elias in [place]. #ESRD on HD M/W/F #History of renal transplant in 2011 Missed outpatient session on Saturday, 09/07, and thus underwent inpatient hemodialysis on same day and tolerated well. Follows up with Dr. Barrios in [place]. Will continue outpatient regimen of M/W/F. ? Plan for dialysis tomorrow ? Avoid nephrotoxic agents ? Renally dose medications #Sepsis secondary to #Community-acquired pneumonia #Hypertensive urgency #Hypertension #Hyperkalemia ? Continue management per primary team ----- Plan discussed with attending physician Dr. Lianna Su MD PGY-1 Internal Medicine Attending Provider Attestation/Addendum Patient seen and examined with resident physician Dr. Darling. Note reviewed, agree with findings and recommendations. #End stage renal disease requiring hemodialysis (scheduled M/W/F) secondary to hypertensive nephrosclerosis. failed kidney transplant afetr [address] Kasper for allowing to participate in the care of Tin
--- NOTE | 2024-09-08 11:05 | PC.NURSE ---
Spoke with Dr. Pringle regarding order placed by team for Influenza test. Patient had test completed in the ED on 09/07 and it was negative. Per Dr. Pringle no need for repeat testing- order stopped.
--- NOTE | 2024-09-08 13:44 | PC.SS ---
SS met with patient regarding his d/c plan.? Pt is alert/oriented.? Pt was admitted for Sepsis PNA.? Pt confirmed demographic and contact information is correct on facesheet.? Pt resides with mom.? Pt??ambulates independently without assistance or DME.? Pt is ok with all ADLs.? Pt is currently on 2 liters of O2.? Pt does not utilizes home O2.? Patient?s pharmacy of choice is [facility].? Pt named his mom, Verena Mendoza medical decision maker if he is unable.? Patient?s choice is to return home upon d/c.? Pt does not have an advance directive, SS offered, and pt declined.? Pt is established with dialysis MWF at 9:15am with Dr. Elias at [facility] M[facility].? Pt last followed up with PCP yesterday, before being hospitalized. D/C plan:? Return home Next of Kin:? Verenabuzz Mendoza, mom, phone# [phone] PCP:? Dr. Halima Montanez from [facility] Address:? Correct on facesheet
--- NOTE | 2024-09-08 13:46 | ESPR_ITS ---
Documentation for date of: 09/08/24 Senior resident attestation: Patient is a 28-year-old male past medical history of end-stage renal disease on hemodialysis, failed renal transplantation, admitted for cough and shortness of breath, chest x-ray shows lobar pneumonia pattern. Complaining of diarrhea past few days, but resolved prior to presentation, complaining of 1 episode of dark stools, FOBT in the emergency was negative, ordered C. difficile studies, but patient only had 1 bowel movement which was solid, unable to send sample to lab, emergency hemodialysis was done, as patient missed outpatient hemodialysis. Nephrology was consulted. 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 #Valley fever?started fluconazole 400 mg loading dose, to be continued on 200 mg/day maintenance dose. #Concern for GI bleed?negative for VTE, but complained of dark tarry stools, noted anemia, GI consult is placed, appreciate recommendations #Diarrhea?C. difficile rule out?reports no current diarrhea, #ESRD on hemodialysis, urgent hemodialysis was done, hemodialysis per schedule to be continued, nephrology is consulted. Appreciate recommendations #Hypertension?resume home meds carvedilol lisinopril Patient evaluated and examined at the bedside, plan of care discussed with rest of the team including my attending physician, except as noted. Quresh PGY2 Subjective Subjective Interval history: Patient seen today at the bedside fine awake, alert, oriented x 3. No overnight events reported. Still active complaints at this time. Vital signs stable at this time. Labs significant for downtrending WBCs. Cocci came back positive patient was started on fluconazole. Patient is also pending an EGD for investigation of black stools on admission. Exam Vital Signs Temp Pulse Resp BP Pulse Ox O2 Del Method O2 Flow Rate 97.1 F 93 16 148/110 H 100 Nasal Cannula 3 09/08/24 11:37 09/08/24 12:00 09/08/24 11:37 09/08/24 11:37 09/08/24 11:37 09/08/24 11:37 09/08/24 11:37 Narrative Exam Physical Exam GENERAL: NAD, AAOx3 HEENT: Dry mucosa. Eyes open, symmetrical, & clear CARDIO: Heart RRR, systolic ejection murmur heard across all chest areas radiating to bilateral carotids PULM: Cough, shortness of breath, decreased air entry on the right side GI: Abdomen soft, nondistended, no pain on palpation. BSx4 SKIN/MSK/EXT: No wounds/rashes/edema/amputations, no pain on palpation. Left upper extremity scar, left upper extremity AV fistula, pedal pulses present B/L NEURO: AAOx3, no focal neuro deficits, able to move all 4 extremities Objective Labs 09/09/24 05:00 09/09/24 05:00 Labs: Laboratory Results - last 24 hr 09/07/24 09/07/24 09/07/24 12:58 22:00 22:10 WBC 24.1 H RBC 3.52 L Hgb 11.4 L Hct 34.2 L MCV 97 MCH 32.4 MCHC 33.3 RDW Std Deviation 57.3 H Plt Count 165 Neut % (Auto) 87 H Lymph % (Auto) 5 L Smyth % (Auto) 7 Eos % (Auto) 0 Baso % (Auto) 0 Neut # (Auto) 20.8 H Lymph # (Auto) 1.2 Smyth # (Auto) 1.6 H Eos # (Auto) 0.0 Baso # (Auto) 0.1 Immature Gran # (Auto) 0.38 H Absolute Nucleated RBC 0.00 Immature Gran % 2 H Nucleated RBC % 0 Sodium 132 L Potassium 5.9 H Chloride 93 L Carbon Dioxide 22.0 Anion Gap 17 H BUN 75 H Creatinine 14.3 H* Estim Creat Clear Calc 8.0 L eGFR 4 L* BUN/Creatinine Ratio 5 L Glucose 97 Calculated Osmolality 286 Calcium 10.6 Corrected Calcium 10.6 H Phosphorus Magnesium Total Bilirubin 0.3 AST 11 ALT < 7 L Alkaline Phosphatase 66 Total Creatine Kinase 26 L Total Protein 7.7 Albumin 4.3 Globulin 3.4 Albumin/Globulin Ratio 1.3 Triglycerides Cholesterol LDL Cholesterol, Calc HDL Cholesterol Cholesterol/HDL Ratio Lipase 37 Procalcitonin 55.20 H PTH Intact 319.1 H Stool Occult Blood Negative RSV Rapid Negative 09/08/24 05:03 WBC 15.3 H D RBC 3.25 L Hgb 10.7 L Hct 32.1 L MCV 99 MCH 32.9 MCHC 33.3 RDW Std Deviation 58.2 H Plt Count 135 L D Neut % (Auto) 80 Lymph % (Auto) 7 L Smyth % (Auto) 12 Eos % (Auto) 0 Baso % (Auto) 0 Neut # (Auto) 12.2 H Lymph # (Auto) 1.1 Smyth # (Auto) 1.8 H Eos # (Auto) 0.1 Baso # (Auto) 0.1 Immature Gran # (Auto) 0.09 H Absolute Nucleated RBC 0.00 Immature Gran % 1 H Nucleated RBC % 0 Sodium 137 Potassium 4.9 D Chloride 94 L Carbon Dioxide 30.3 Anion Gap 13 BUN 38 H Creatinine 9.2 H* D Estim Creat Clear Calc 12.5 L eGFR 7 L* BUN/Creatinine Ratio 4 L Glucose 95 Calculated Osmolality 282 Calcium 10.2 Corrected Calcium 10.2 H Phosphorus 7.6 H Magnesium 2.4 Total Bilirubin 0.4 AST < 10 ALT < 7 L Alkaline Phosphatase 66 Total Creatine Kinase Total Protein 7.5 Albumin 4.2 Globulin 3.3 Albumin/Globulin Ratio 1.3 Triglycerides 133 Cholesterol 104 L LDL Cholesterol, Calc 46 HDL Cholesterol 31 L Cholesterol/HDL Ratio 3.4 L Lipase Procalcitonin PTH Intact Stool Occult Blood RSV Rapid Quality Measures Quality Measures none Assessment & Plan Assessment Current Active Medications: Generic Name Dose Route Start Last Admin Trade Name Freq PRN Reason Stop Dose Admin Acetaminophen 650 mg 09/07/24 16:50 Acetaminophen 325 Mg Tablet PO 10/07/24 16:49 Q6H PRN Fever >100.5 Acetaminophen 650 mg 09/07/24 16:50 09/07/24 20:07 Acetaminophen 325 Mg Tablet PO 10/07/24 16:49 650 mg Q6H PRN Administration PAIN SCALE 1-3 (mild Carvedilol 6.25 mg 09/07/24 17:30 09/08/24 08:32 Carvedilol 3.125 Mg Tablet PO 10/07/24 17:29 6.25 mg BIDWM ZAIDA Administration Docusate Sodium 100 mg 09/08/24 09:00 09/08/24 08:33 Docusate Sod 100 Mg Capsule PO 10/08/24 08:59 100 mg QDAY ZAIDA Administration Protocol Doxycycline Hyclate 100 mg 09/07/24 21:00 09/08/24 08:32 Doxycycline 100 Mg Tablet PO 09/14/24 20:59 100 mg BID ZAIDA Administration Heparin Sodium (Porcine) 5,000 unit 09/07/24 16:55 09/08/24 05:14 Heparin Sod Inj 5000 Unit/Ml Vial SC 09/21/24 16:54 5,000 unit Q8HR ZAIDA Administration Ceftriaxone Sodium/Dextrose 50 mls @ 100 mls/hr 09/07/24 16:51 09/08/24 08:32 Rocephin/D5w 1gm Iv Premix IV 09/14/24 16:50 100 mls/hr QDAY ZAIDA Administration Albumin Human 25 gm in 100 mls @ 100 mls/min 09/07/24 18:33 Albuminar-25 Ivpb IV PRN PRN DIALYSIS Labetalol HCl 10 mg 09/07/24 17:59 Labetalol Inj 5 Mg/Ml Vial 20 Ml IVP 10/07/24 17:59 Q6H PRN SBP>170 Lisinopril 40 mg 09/07/24 17:00 09/08/24 08:32 Lisinopril 20 Mg Tablet PO 10/07/24 16:59 40 mg QDAY ZAIDA Administration Ondansetron HCl 4 mg 09/07/24 16:50 Ondansetron Inj 2 Mg/Ml Inj 2 Ml IV 10/07/24 16:49 Q6H PRN NAUSEA OR VOMITING Protocol Pantoprazole Sodium 40 mg 09/08/24 09:00 09/08/24 08:34 Pantoprazole Inj 40 Mg Vial IV 10/08/24 08:59 40 mg QDAY ZAIDA Administration Sevelamer Carbonate 800 mg 09/07/24 17:30 09/08/24 11:09 Sevelamer Carbonate 800 Mg Tablet PO 10/07/24 17:29 Not Given TIDWM ZAIDA Sodium Chloride 3 ml 09/07/24 15:38 09/07/24 16:59 Sodium Chloride Rt Amrita 0.9% 3 Ml Nebu INH 10/07/24 15:37 3 ml PRN PRN Administration SOLN Plan 28-year-old male with past medical history of hypertension, ESRD [M, W, F] seen by honing machine try out setter, Dr. Elias in [place] presented to the ED due to fevers, chills, body aches, nonproductive cough and black stools for 2 days. Admitted for sepsis secondary to pneumonia. #Sepsis likely secondary to #Community-acquired pneumonia #Cocci pneumonia Patient's chief complaint is fever, chills, body aches, nonproductive cough and shortness of breath on exertion On admission patient was tachycardic, with leukocytosis, tachypnea Currently with tachycardia, tachypnea, febrile Chest x-ray showed prominent right upper lobe pneumonia Procalcitonin 55.2, lactic acid normal Cocci came back positive, RSV negative, flu negative -On ceftriaxone and doxycycline [09/07/2024-] -Started on fluconazole 400 mg IV daily, then will start 200 mg IV daily -Blood cultures pending -Sputum culture ordered #Concern for GI bleed likely upper Patient reports having black stools since Saturday morning FOBT negative -Pending EGD today -C. difficile ordered -GI Dr. Pina consulted, appreciate recommendations -Pantoprazole 40 mg IV once daily #ESRD [M, W, F] #History of renal transplant 2011 #Hyperparathyroidism Patient follows honing machine try out setter, Dr. Elias in [place] Likely secondary to kidney disease -Continue hemodialysis as scheduled -Nephrology, Dr. Dsouza consulted, appreciate recommendations -Avoid nephrotoxins -Renally dose medications #Hypertensive urgency-resolved #History of hypertension on admission systolic blood pressure more than 165 -on carvedilol 12.5 mg twice daily -on lisinopril 40 mg daily #Hyperkalemia-resolved On admission patient was found to have potassium of 5.9 EKG was ordered however has not been updated to the EMR In the ED patient received calcium gluconate, albuterol, insulin, dextrose Patient will also have urgent dialysis today -Follow-up morning CMP #Heart murmur On examination patient was noted to have heart murmur across all chest areas radiating to the bilateral carotids Patient denies any cardiac history besides hypertension -Monitor for now Case discussed with my senior Dr. Resendiz PGY-[address] Majo Montanez MD PGY-1 Disposition: Med telemetry Fluids: None Feeding: Renal diet Thrombo prophylaxis: Heparin Gastric Ulcer prophylaxis: Pantoprazole CODE STATUS: Full code Attending Provider Attestation/Addendum Noemy Nye DO, attest that I was physically present for the gallegos portions of the service and evaluated the patient with the resident and I reviewed and discussed the case with the resident and agree with the resident's findings and plans of care as documented above Patient seen and evaluated this AM. Per nursing, patient has formed stools, no further episodes of diarrhea. He reports feeling well and is currently on 2L/NC. Will continue wtih IV abx and f/u with final cultures and sensitivities. EGD pending this evening.
[2024-09-08 13:49] LABS: Cocid Sro, CF/ID (UCD) NO CHG* See Sep Rpt
[2024-09-08 13:49] LABS: Cocci Serology, IgM Positive (Negative)
[2024-09-08] MEDS: FLUCONAZOLE/NS 400 MG IVPB 400 MG/200 ML BAG 100 MG IV (16:10)
[2024-09-08] MEDS: carVEDILOL 12.5 MG TABLET PO (16:47)
[2024-09-08] MEDS: MG HYD/AL HYD/SIME (Maalox Reg) SUSP 30 ML UDC 15 ML PO (22:30)
[2024-09-08] MEDS: SUCRALFATE SUSP 1 GM/10 ML UDC PO (22:30)
[2024-09-09] VITALS (22 sets, daily range): BP systolic 137–166; BP diastolic 82–97; PULSE 79–848; RESP 18–21; TEMP 36.1–36.6; O2SAT 95–100; BMI 31.8
[2024-09-09] MEDS: MG HYD/AL HYD/SIME (Maalox Reg) SUSP 30 ML UDC 15 ML PO ×4 (01:56→14:55)
[2024-09-09] MEDS: SUCRALFATE SUSP 1 GM/10 ML UDC PO ×2 (05:10→12:56)
[2024-09-09] MEDS: HEPARIN SOD INJ 5000 UNIT/ML VIAL SC (05:10)
[2024-09-09 06:46] LABS: Basophils % (Auto) 1 % (0-2.5); Eosinophils # (Auto) 0.4 Thou/mm3 (0.0-0.5); Eosinophils % (Auto) 6 % (0-10); Hemoglobin 10.9 g/dL (13.5-16.0); Immature Granulocytes % (Auto) 0 % (0-0); Immature Granulocytes Auto 0.02 Thou/mm3 (0.00-0.00); Lymphocytes # (Auto) 1.1 Thou/mm3 (1.0-4.8); Lymphocytes % (Auto) 17 % (10-50); Mean Corpuscular Hemoglobin 32.5 pg (25.0-35.0); Mean Corpuscular Volume 99 fL (80-100); Monocytes # (Auto) 0.8 Thou/mm3 (0.0-0.8); Monocytes % (Auto) 12 % (0-12); Neutrophils # (Auto) 4.2 Thou/mm3 (1.8-7.7); Neutrophils % (Auto) 65 % (37-80); Nucleated Red Blood Cell % 0 /100 WBC (0); Platelet Count 152 Thou/mm3 (140-440); RDW Standard Deviation 56.2 fL (35.1-43.9); Red Blood Count 3.35 Miln/mm3 (4.50-5.90); White Blood Count 6.5 Thou/mm3 (3.8-10.6)
[2024-09-09 07:26] LABS: Alanine Aminotransferase < 7 U/L (10-49); Albumin, Serum 4.2 gm/dL (3.5-5.0); Albumin/Globulin Ratio 1.2 (1.2-2.2); Alkaline Phosphatase 58 U/L (46-116); Anion Gap 15 (7-16); Aspartate Amino Transferase < 8 U/L (0-34); BUN/Creatinine Ratio 5 Ratio (12-20); Bilirubin,Total 0.2 mg/dL (0.3-1.2); Blood Urea Nitrogen 56 mg/dL (9-23); Carbon Dioxide 28.5 mMol/L (20.0-31.0); Chloride 96 mMol/L (98-107); Estimated Creatinine Clearance 9.5 mL/min (>60); Globulin 3.5 gm/dL (2.3-3.5); Glucose 76 mg/dL (74-106); Magnesium 2.8 mg/dL (1.6-2.6); Osmolality,Calculated 292 (275-295); Potassium 4.9 mMol/L (3.4-5.1); Sodium 139 mMol/L (136-145); Total Protein 7.7 gm/dL (5.7-8.2); eGFR 5 See Note
[2024-09-09 07:32] LABS: Creatinine (Component) 11.9 mg/dL (0.6-1.3); Phosphorous 10.2 mg/dL (2.4-5.1)
[2024-09-09] MEDS: SEVELAMER CARBONATE 800 MG TABLET PO ×2 (08:18→12:57)
[2024-09-09] MEDS: DOXYCYCLINE 100 MG TABLET PO (08:18)
[2024-09-09] MEDS: DOCUSATE SOD 100 MG CAPSULE PO (08:18)
[2024-09-09] MEDS: cefTRIAXone/D5w 1gm IV premix 50 ML IV (08:23)
[2024-09-09] MEDS: FLUCONAZOLE/NS 200 MG IVPB 200 MG/100 ML BAG 100 MG IV (08:23)
--- NOTE | 2024-09-09 08:31 | PD.RESPRO ---
Documentation for date of: 09/09/24 Subjective Subjective Interval history: Tin Pepe is a 28-year-old male with past medical history of hypertension, ESRD (HD on //, anuric) s/p renal transplant in 2011 with dry weight 98 kg who presented to the ED for fevers, chills, body aches, and nonproductive cough starting AM of 09/06. Also reports that around this time he was having black stools. Denies taking any type of iron supplementation, states he only took Pepto-Bismol on Saturday. Also endorses dyspnea on exertion, such as when he ambulates to and from the restroom. Of note, he missed his hemodialysis session on Saturday due to severity of his symptoms. Otherwise, denies headache, blurry vision, chest pain, nausea, vomiting, abdominal pain, lower extremity swelling. In ED, vitals significant for BP 166/87, HR 126, otherwise vital stable. Labs significant for WBC 24.1, hemoglobin 11.4, sodium 132, potassium 5.9, BUN 75, creatinine 14.3, calcium 10.6, Pro-Vicente 55.2. CXR showed pulmonary pneumonia in right upper lobe. Received calcium gluconate, insulin, albuterol, and dextrose. Admitted for management of sepsis secondary to pneumonia. Nephrology consulted for ESRD requiring dialysis. Patient follows Dr. Elias in [place]. 09/08: Seen and examined at bedside with family present. No acute overnight events and patient does not have any current complaints. Continues to be on 3 L nasal cannula but denies worsening shortness of breath. Underwent dialysis yesterday inpatient after missing outpatient session and tolerated well. Will follow outpatient regimen of M/W/. WBC downtrending from 24 to 15.3, hemoglobin stable at 10.7. Sodium improved from 132 to 137, potassium improved from 5.9 to 4.9, BUN from 75 to 38 and creatinine from 14.3 to 9.2. 09/09: Seen and examined at bedside, resting comfortably in bed, saturating 100% on 3 L NC. No acute overnight evens reported. States that he no longer has loose bowel movements and does not have abdominal pain. Will undergo dialysis today per M/W/F regimen. WBC wnl, hemoglobin stable at 10.9. Na/K wnl, BUN 56, Cr 11.9, phos 10.2, Mg 2.8. Cocci IgM antibody noted to be positive. Exam Vital Signs Temp Pulse Resp BP Pulse Ox O2 Del Method O2 Flow Rate 97.2 F 79 21 H 137/96 H 100 Nasal Cannula 3 09/09/24 07:57 09/09/24 07:57 09/09/24 04:00 09/09/24 07:57 09/09/24 07:57 09/09/24 07:57 09/09/24 07:57 Narrative Exam General: AOx3, no acute distress, able to speak full sentences HEENT: NC/AT, mucous membranes moist, bilateral sclera anicteric Cardiovascular: regular rate and rhythm, S1/S2 present, no murmurs appreciated Pulmonary: clear to auscultation bilaterally, no rales/rhonchi/wheezes Abdominal: soft, non-tender, non-distended, no rebound/guarding, normal bowel sounds present Musculoskeletal: normal ROM, no peripheral edema Skin: fistula in left upper extremity, warm and dry, intact, no rashes Neuro: CN II-XII intact, no focal deficits Objective Labs 09/09/24 05:00 09/09/24 05:00 Labs: Laboratory Results - last 24 hr 09/08/24 09/09/24 10:56 05:00 WBC 6.5 D RBC 3.35 L Hgb 10.9 L Hct 33.0 L MCV 99 MCH 32.5 MCHC 33.0 RDW Std Deviation 56.2 H Plt Count 152 Neut % (Auto) 65 Lymph % (Auto) 17 [place] % (Auto) 12 Eos % (Auto) 6 Baso % (Auto) 1 Neut # (Auto) 4.2 Lymph # (Auto) 1.1 [place] # (Auto) 0.8 Eos # (Auto) 0.4 Baso # (Auto) 0.0 Immature Gran # (Auto) 0.02 H Absolute Nucleated RBC 0.00 Immature Gran % 0 Nucleated RBC % 0 Sodium 139 Potassium 4.9 Chloride 96 L Carbon Dioxide 28.5 Anion Gap 15 BUN 56 H Creatinine 11.9 H* D Estim Creat Clear Calc 9.5 L eGFR 5 L* BUN/Creatinine Ratio 5 L Glucose 76 Calculated Osmolality 292 Calcium 10.0 Corrected Calcium 10.0 Phosphorus 10.2 H Magnesium 2.8 H Total Bilirubin 0.2 L AST < 8 ALT < 7 L Alkaline Phosphatase 58 Total Protein 7.7 Albumin 4.2 Globulin 3.5 Albumin/Globulin Ratio 1.2 Coccidioides IgM Ab Positive A Quality Measures Quality Measures none Assessment & Plan Assessment Current Active Medications: Generic Name Dose Route Start Last Admin Trade Name Freq PRN Reason Stop Dose Admin Acetaminophen 650 mg 09/07/24 16:50 Acetaminophen 325 Mg Tablet PO 10/07/24 16:49 Q6H PRN Fever >100.5 Acetaminophen 650 mg 09/07/24 16:50 09/07/24 20:07 Acetaminophen 325 Mg Tablet PO 10/07/24 16:49 650 mg Q6H PRN Administration PAIN SCALE 1-3 (mild Al Hydrox/Mg Hydrox/Simethicone 15 ml 09/08/24 22:00 09/09/24 05:10 Mg Hyd/Al Hyd/Jun (Maalox Reg) Susp 30 Ml Udc PO 10/08/24 21:59 15 ml Q4HR ZAIDA Administration Carvedilol 25 mg 09/09/24 17:30 Carvedilol 12.5 Mg Tablet PO 10/09/24 17:29 BIDWM ZAIDA Docusate Sodium 100 mg 09/08/24 09:00 09/09/24 08:18 Docusate Sod 100 Mg Capsule PO 10/08/24 08:59 100 mg QDAY ZAIDA Administration Protocol Doxycycline Hyclate 100 mg 09/07/24 21:00 09/09/24 08:18 Doxycycline 100 Mg Tablet PO 09/14/24 20:59 100 mg BID ZAIDA Administration Heparin Sodium (Porcine) 5,000 unit 09/07/24 16:55 09/09/24 05:10 Heparin Sod Inj 5000 Unit/Ml Vial SC 09/21/24 16:54 5,000 unit Q8HR ZAIDA Administration Ceftriaxone Sodium/Dextrose 50 mls @ 100 mls/hr 09/07/24 16:51 09/09/24 08:23 Rocephin/D5w 1gm Iv Premix IV 09/14/24 16:50 100 mls/hr QDAY ZAIDA Administration Albumin Human 25 gm in 100 mls @ 100 mls/min 09/07/24 18:33 Albuminar-25 Ivpb IV PRN PRN DIALYSIS Fluconazole 200 mg in 100 mls @ 100 mls/hr 09/09/24 09:00 09/09/24 08:23 Diflucan/Ns Ivpb IV 09/16/24 08:59 100 mls/hr QDAY ZAIDA Administration Labetalol HCl 10 mg 09/07/24 17:59 Labetalol Inj 5 Mg/Ml Vial 20 Ml IVP 10/07/24 17:59 Q6H PRN SBP>170 Lisinopril 40 mg 09/07/24 17:00 09/08/24 08:32 Lisinopril 20 Mg Tablet PO 10/07/24 16:59 40 mg QDAY ZAIDA Administration Ondansetron HCl 4 mg 09/07/24 16:50 Ondansetron Inj 2 Mg/Ml Inj 2 Ml IV 10/07/24 16:49 Q6H PRN NAUSEA OR VOMITING Protocol Pantoprazole Sodium 40 mg 09/08/24 09:00 09/08/24 08:34 Pantoprazole Inj 40 Mg Vial IV 10/08/24 08:59 40 mg QDAY ZAIDA Administration Sevelamer Carbonate 800 mg 09/07/24 17:30 09/09/24 08:18 Sevelamer Carbonate 800 Mg Tablet PO 10/07/24 17:29 800 mg TIDWM ZAIDA Administration Sodium Chloride 3 ml 09/07/24 15:38 09/07/24 16:59 Sodium Chloride Rt Amrita 0.9% 3 Ml Nebu INH 10/07/24 15:37 3 ml PRN PRN Administration SOLN Sucralfate 1 gm 09/08/24 21:00 09/09/24 05:10 Sucralfate Susp 1 Gm/10 Ml Udc PO 10/08/24 20:59 1 gm QID ZAIDA Administration Plan Tin Pepe is a 28-year-old male with past medical history of hypertension, ESRD (HD on //, anuric) s/p renal transplant in 2011 with dry weight 98 kg who was admitted for management of sepsis seconadry to pneumonia. Nephrology consulted for ESRD requiring dialysis (HD on //) and follows Dr. Elias in [place]. #ESRD on HD // #History of renal transplant in 2011 #Hyperphosphatemia Missed outpatient session on Saturday, 09/07, and thus underwent inpatient hemodialysis on same day and tolerated well. Follows up with Dr. Barrios in [place]. Will continue outpatient regimen of M/W/F. ? Hemodialysis today ? Sevelamer 800 mg TID with meals ? Avoid nephrotoxic agents ? Renally dose medications #Sepsis secondary to #Community-acquired pneumonia vs pulmonary cocci (IgM positive) #Hypertensive urgency #Hypertension #Hyperkalemia ? Continue management per primary team ----- Plan discussed with attending physician Dr. Lianna Su MD PGY-1 Internal Medicine Attending Provider Attestation/Addendum Patient seen and examined with resident physician Dr. Darling. Note reviewed, agree with findings and recommendations. Patient currently seen on dialysis. Tolerating dialysis without any problems. Hemodialysis for 3 hours, 2K, ultrafiltration 2-3 L, Epogen 6000, no heparin ordered. Plan of care discussed with the dialysis nurse. Please see dialysis flowsheet for further details.
[2024-09-09 11:44] LABS: Hepatitis A Antibody IgM Non Reactive (Non React); Hepatitis B Core Antibody IgM Non Reactive (Non React); Hepatitis B Surface Ab Reactive (Immune) (Immune); Hepatitis B Surface Antigen Non Reactive (Non React); Hepatitis C Antibody Non Reactive (Non React)
[2024-09-09] MEDS: PANTOPRAZOLE INJ 40 MG VIAL IV (12:56)
[2024-09-09] MEDS: Lisinopril 20 MG TABLET 40 MG PO (12:57)
--- NOTE | 2024-09-09 14:46 | PC.NURSE ---
Dialysis completed for 3 hrs, tolerated well.? Respiration even and unlabored. Saturating at 97% room air.? Able to removed 2100 ml of fluid net.? Post tx BP 138/88, HR 98, Temp 97.8.? Pt back in his.? Call light within reached. Report given to Beverley KEARNEY
--- NOTE | 2024-09-09 16:04 | ESDS_ITS ---
<Statement entered by Noemy Kasper DO - 09/10/24 08:22> I, Noemy Kasper DO, attest that I was physically present for the gallegos portions of the service and evaluated the patient with the resident and I reviewed and discussed the case with the resident and agree with the resident's findings and plans of care as documented above Planned Discharge Date 09/09/24 DS: Providers Provider Date of admission: 09/07/24 16:49 Primary care physician: Robert Montanez MD Admitting Provider: Noemy Kasper DO Attending Provider on Admission: Noemy Kasper DO Consults: 09/07/24 16:53 Consult to Nephrology Stat Comment: Consulting Provider: Marlen Dsouza 09/07/24 17:03 Consult to Gastroenterology Stat Comment: Black stools Consulting Provider: Felipe Pina Attending Provider on DC: Noemy Kasper DO Discharging Provider: Tim Montanez MD Anticipated date of discharge: 09/09/24 DS: Diagnosis Problem List Completed Was Problem List Reviewed/Reconciled?: Yes Hospital Course Hospital Course Hospital course: 28-year-old male with past medical history of hypertension, ESRD [M, W, F] seen by marketing project lead, Dr. Barrios in [place] presented to the ED due to fevers, chills, body aches, nonproductive cough and black stools for 2 days. Admitted for sepsis secondary to pneumonia. Patient admitted for sepsis secondary to community aquired pneumonia. During hospital stay patient was treated with IV antibiotics namely Ceftriaxone and doxycycline. Patient was also septic on presentation and sepsis boluses were provided 30ml/kg. Patient was underwent further lab work and was found to be Cocci positive and fluconazole was added to regimen. There was concern for GI bleed for which FOBT was ordered and found neg ative, GI, Dr. Pina was consulted and evaluated the patient and later underwent EGD and found with erosive gastritis. Patient is also end stage renal disease for which Nephrology, Dr. Dsouza was consulted and continued patient Hemodialysis as scheduled. Patient on presentation was hypertensive urgency for which patients home medications carvedilol, lisinopril were resumed and Blood pressure was controlled. Patient on admission was hyperkalemic for which hyperkalemia cocktail was provided as well as hemodialysis. At this time patient is medically stable for discharge. Follow-up with primary care physician within 1 week of discharge. Recommended to follow-up with marketing project lead Dr. Barrios in [place] within 2 weeks of discharge. Recommended to continue antibiotics Augmentin and doxycycline for 4 more days. Recommended to take Protonix 40 mg twice daily for erosive gastritis found on EGD. Patient is recommended to continue fluconazole 400 mg once daily for 3 to 6 months depending on primary care physician recommendations. Patient is recommended to continue taking Maalox and sucralfate for erosive gastritis. Should symptoms recur or worsen patient is instructed to return to the ED. Problem List: #Sepsis likely secondary to #Community-acquired pneumonia #Cocci pneumonia #Concern for GI bleed likely upper #ESRD [M, W, F] #History of renal transplant 2011 #Hyperparathyroidism #Hypertensive urgency-resolved #History of hypertension #Hyperkalemia-resolved #Heart murmur Case discussed with my attending Dr. Majo Montanez MD PGY-1 Status at Discharge Functional status at discharge: independent ambulation Overall status at discharge: patient is back to baseline Time Spent with Patient Time attestation: Total time spent providing and/or coordinating discharge services: Time spent: Greater than 30 minutes Exam Vital Signs Temp Pulse Resp BP Pulse Ox O2 Del Method O2 Flow Rate 97.8 F 98 18 141/88 H 95 Room Air 3 09/09/24 15:54 09/09/24 15:54 09/09/24 15:54 09/09/24 15:54 09/09/24 15:54 09/09/24 15:54 09/09/24 07:57 Narrative Exam Physical Exam GENERAL: NAD, AAOx3 HEENT: Dry mucosa. Eyes open, symmetrical, & clear CARDIO: Heart RRR, systolic ejection murmur heard across all chest areas radiating to bilateral carotids PULM: Cough, shortness of breath, decreased air entry on the right side GI: Abdomen soft, nondistended, no pain on palpation. BSx4 SKIN/MSK/EXT: No wounds/rashes/edema/amputations, no pain on palpation. Left upper extremity scar, left upper extremity AV fistula, pedal pulses present B/L NEURO: AAOx3, no focal neuro deficits, able to move all 4 extremities Discharge Plan Plan Patient Disposition: HOME (Self Care) Patient condition on transfer: Stable Care Plan Goals: Follow-up with primary care physician within 1 week of discharge. Recommended to follow-up with marketing project lead Dr. Barrios in [place] within 2 weeks of discharge. Recommended to continue antibiotics Augmentin and doxycycline for 4 more days Recommended to take Protonix 40 mg twice daily for erosive gastritis found on EGD. Should symptoms recur or worsen patient is instructed to return to the ED. Patient is recommended to continue fluconazole 400 mg once daily for 3 to 6 months depending on primary care physician recommendations Patient is recommended to continue taking Maalox and sucralfate for erosive gastritis Prescriptions/Referrals Prescriptions/Med Rec: New alum-mag hydroxide-simeth 400-400-40 mg/5 mL suspension 15 ml PO Q4HR 30 Days Qty: 3000 0RF sucralfate 100 mg/mL Suspension 1 g PO QID 30 Days Qty: 1200 0RF doxycycline hyclate 100 mg capsule 100 mg PO BID Qty: 8 0RF fluconazole 200 mg tablet 400 mg PO QDAY Qty: 60 2RF pantoprazole 40 mg tablet,delayed release (DR/EC) 40 mg PO BID Qty: 60 0RF amoxicillin-pot clavulanate [Augmentin] 500-125 mg tablet 1 tab PO QDAY Qty: 4 0RF Continued carvedilol 25 mg tablet 25 mg PO BID Patient Comments: TAKE ONE TABLET BY MOUTH TWICE DAILY sevelamer HCl 800 mg tablet 800 mg PO TID amlodipine 10 mg tablet 10 mg PO HS Patient Comments: TAKE ONE TABLET BY MOUTH IN THE EVENING lisinopril 40 mg tablet 40 mg PO QDAY Patient Comments: TAKE ONE TABLET BY MOUTH EVERY DAY Velphoro 500 mg tablet,chewable 500 mg PO TID Referrals: Robert Montanez MD [Primary Care Provider] - Patient/Caregiver Discharge Instructions Education Materials: Discharge Instructions- Eating ..., Understanding Coccidioidomycosis Print Language: Greenlandic Stand Alone Forms: María Award Info., Patient Portal Info Letter Discharge Order Discharge Orders: Discharge (Routine); Ordered 09/09/24 Ordered By: Tim Montanez Quality Discharge Quality Measures VTE prophylaxis
== END 2024-09-09 16:20 | disposition home or self-care (01) | DRG 137 ==
LOC: SERX 17:26 → SERHOLD 17:30 → S3NX 21:29
PROVIDERS: Internal Medicine; Nurse Practitioner Primary Care; Specialist; Student in an Organized Health Care Education/Training Program; Admitting Provider Internal Medicine; Emergency Provider Emergency Medicine; PCP Family Medicine; Visit Provider Internal Medicine
PROC: 0W3P8ZZ Control Bleeding in Gastrointestinal Tract, Via Natural or Artificial Opening Endoscopic (ICD-10-PCS; CPT 43239; principal; 2024-09-08 18:00)
DX: B38.0 Acute pulmonary coccidioidomycosis (principal); I12.0 Hypertensive chronic kidney disease with stage 5 chronic kidney disease or end stage renal disease; N18.6 End stage renal disease; I16.0 Hypertensive urgency; E87.5 Hyperkalemia; E21.3 Hyperparathyroidism, unspecified; K25.4 Chronic or unspecified gastric ulcer with hemorrhage; K31.89 Other diseases of stomach and duodenum; D62 Acute posthemorrhagic anemia; K20.90 Esophagitis, unspecified without bleeding; E83.39 Other disorders of phosphorus metabolism; T86.12 Kidney transplant failure; Z99.2 Dependence on renal dialysis; Z79.899 Other long term (current) drug therapy; Y83.0 Surgical operation with transplant of whole organ as the cause of abnormal reaction of the patient, or of later complication, without mention of misadventure at the time of the procedure
CPT/HCPCS: 36415; 71046; 80053; 80061; 80074; 82270; 82550; 83605; 83690; 83735; 83970; 84100; 84145; 85025; 85610; 85730; 86635; 86706; 87040; 87081; 87205; 87400; 87493; 87502; 87634; 87811; 93005; 93225; 94640; 96365; 96372; 99285; A4649; J0612; J0696; J1200; J1450; J1644; J1815; J2250; J2470; J3010; A9270